=== PATIENT | male | born 1970 | race African-American/Black ===

== ENCOUNTER 2023-03-19 18:10 | Emergency (ER) | payer OTHER ==
[~2023-03-19] VITALS: Ht 175.3 cm; Wt 63.5 kg
[2023-03-19 18:17] VITALS: BP 138/97; PULSE 86; RESP 16; TEMP 97.9; O2SAT 98
[2023-03-19] MEDS ORDERED: IBUP-2213 PO (18:55)
[2023-03-19 19:00] VITALS: BP 138/97; PULSE 86; RESP 16; TEMP 97.9; O2SAT 98
== END 2023-03-19 19:00 | disposition home or self-care (01) ==
LOC: MED 18:10
DX: R07.9 Chest pain, unspecified (principal); Z79.899 Other long term (current) drug therapy
CPT/HCPCS: 93005; 99283

== ENCOUNTER 2023-05-12 14:37 | Emergency (ER) | payer OTHER ==
[~2023-05-12] VITALS: Ht 175.3 cm; Wt 63.5 kg
[~2023-05-12 14:37] MED LIST: IBUP-2213 PO
[2023-05-12 15:09] VITALS: BP 139/92; PULSE 98; RESP 18; TEMP 98.5; O2SAT 97
[2023-05-12] MEDS: ACETAMINOPHEN 325 MG TAB PO ONE (16:45)
[2023-05-12] MEDS ORDERED: METH-1681 PO (17:35)
[2023-05-12] MEDS ORDERED: IBUP-2213 PO (17:35)
[2023-05-12] MEDS ORDERED: LID5T TP (17:35)
[2023-05-12] MEDS ORDERED: KETOROLAC 30 MG/ML VIAL ONE (17:51)
[2023-05-12] MEDS ORDERED: ACETAMINOPHEN 325 MG TAB ONE (17:51)
[2023-05-12] MEDS ORDERED: LIDOCAINE 5% 1 EA PATCH TP ONE (17:52)
[2023-05-12] MEDS: LIDOCAINE 5% 1 EA PATCH TP ONE (18:00)
[2023-05-12 18:05] VITALS: BP 139/92; PULSE 98; RESP 18; TEMP 98.5; O2SAT 97
[2023-05-12] MEDS: KETOROLAC 30 MG/ML VIAL IM ONE (18:13)
== END 2023-05-12 18:05 | disposition home or self-care (01) ==
LOC: MED 14:37
DX: M54.50 Low back pain, unspecified (principal); M53.3 Sacrococcygeal disorders, not elsewhere classified; E78.5 Hyperlipidemia, unspecified; Z79.899 Other long term (current) drug therapy; Z79.1 Long term (current) use of non-steroidal anti-inflammatories (NSAID)
CPT/HCPCS: 72110; 99283; J1885